=== PATIENT | male | born 1930 | race Caucasian/White ===

== ENCOUNTER → 2017-01-30 | Outpatient (CLI) | payer OTHER, BC ==
[~2017-01-30] MED LIST: ATENOLOL50 MG PO; ATORVASTATIN CA20 MG PO; CELEBREX200 MG PO; COUMADIN PO; Coumadin dosing per PO; FEOSOL325 MG PO; Klonopin PO; LASIX20 MG PO; LO-DOSE ASPIRIN81 M2 PO; METAMUCIL APP1 WAFER PO; MIRALAX, GLYCOL1 PK1 PO; MIRALAX17 GM PO; SAW PALMETTO450 MG PO; SENOKOT S,PE1 TABLET PO; THERAGRAN1 TABLET PO; TRAZODONE HCL50 MG PO; Tenormin PO; VITAMIN D31000 UNIT PO; Vicodin,Lortab 5/500 PO; Zocor PO
== END | disposition home or self-care (01) ==
LOC: EDSTATUS 09:00 → OPR 09:00 → RAD 09:51 → OPR 10:00 → RAD 10:00
PROC: 0J9L3ZX Drainage of Right Upper Leg Subcutaneous Tissue and Fascia, Percutaneous Approach, Diagnostic (ICD-10-PCS; principal; 2017-01-30)
DX: R22.41 Localized swelling, mass and lump, right lower limb (principal)
CPT/HCPCS: 76942; 87070; 87075; 87205; 88160; 88305

== ENCOUNTER → 2017-03-25 | Outpatient (CLI) | payer OTHER, BC | END | disposition home or self-care (01) | LOC: NUC 08:59 | DX: M41.85 Other forms of scoliosis, thoracolumbar region (principal); R93.7 Abnormal findings on diagnostic imaging of other parts of musculoskeletal system; Z96.641 Presence of right artificial hip joint | CPT/HCPCS: 78315; A9503 ==

== ENCOUNTER 2017-10-20 00:45 | Inpatient (IN) | payer OTHER, BC ==
[~2017-10-20] VITALS: Ht 170.2 cm; Wt 70.5 kg
[2017-10-20 01:02] LABS: BASOPHIL (%) 0.7 % (0-1); BASOPHIL COUNT 0.1 K/uL (0-0.1); EOSINOPHIL (%) 0.4 % (0-5); HEMOGLOBIN 10.3 G/DL (12.5-16.6); IMMATURE GRANULOCYTE (%) 1.5 % (0.0-0.7); LYMPHOCYTE (%) 9.2 % (15-42); LYMPHOCYTE COUNT 0.8 K/uL (1.0-2.8); MCH 31.1 PG (29.0-34.0); MCHC 33.2 G/DL (30.0-36.0); MCV 93.7 FL (86-99); MONOCYTE (%) 11.5 % (3-12); MONOCYTE COUNT 1.1 K/uL (0-0.8); NEUTROPHIL (%) 76.7 % (45-76); PLATELET COUNT 407 K/uL (156-360); RBC DIS.WIDTH-CV 15.9 % (11.8-14.6); RBC DIS.WIDTH-SD 54.6 % (39-53); RED BLOOD COUNT 3.31 M/uL (4.00-5.50); WHITE BLOOD COUNT 9.2 K/uL (4.1-10.2)
[2017-10-20 01:12] LABS: CHLORIDE 100 mEq/L (99-109); POTASSIUM 4.2 mEq/L (3.7-5.4); SODIUM 134 mEq/L (136-147)
[2017-10-20 01:14] LABS: GLUCOSE 120 mg/dL (70-99)
[2017-10-20 01:18] LABS: CREATININE 1.4 mg/dL (0.6-1.3); GFR ESTIMATE (CALCULATED) 51 mL/min/ (58.99-99999)
[2017-10-20 01:19] LABS: UREA NITROGEN (BUN) 26 mg/dL (9-23)
[2017-10-20 01:23] LABS: TROP-I INTERPRETATION NEGATIVE; TROPONIN-I 0.08 ng/mL (0.0-0.30)
[2017-10-20 06:52] LABS: TROP-I INTERPRETATION NEGATIVE; TROPONIN-I 0.12 ng/mL (0.0-0.30)
[2017-10-20] MEDS ORDERED: COLACE100 MG PO (08:51)
[2017-10-20] MEDS ORDERED: CLEOCIN300 MG PO (08:51)
[2017-10-20 12:34] LABS: TROP-I INTERPRETATION NEGATIVE; TROPONIN-I 0.18 ng/mL (0.0-0.30)
[2017-10-20 12:55] LABS: APPEARANCE CLEAR ((CLEAR)); BILIRUBIN NEGATIVE; BLOOD SMALL; COLOR STRAW ((YELLOW)); GLUCOSE (STRIP) NEGATIVE; KETONES NEGATIVE; LEUKOCYTES NEGATIVE; NITRITE NEGATIVE; PROTEIN (STRIP) NEGATIVE; SPECIFIC GRAVITY 1.009 (1.000-1.030); UROBILINOGEN 0.2 MG/DL (0.2-1.0)
[2017-10-20 12:58] LABS: BACTERIA RARE /HPF; EPITHELIAL CELLS NONE SEEN /HPF; HYALINE CASTS 0-5 /LPF; MUCUS TRACE /LPF; RED BLOOD CELLS 0-5 /HPF (0-5); UCUL ADDED? NO; WHITE BLOOD CELLS 0-5 /HPF (0-5)
[2017-10-20 15:35] LABS: BASE EXCESS 3.9 mEq/L (-3 to +3); BICARBONATE 27.4 mEq/L (22-26); CARBOXY HGB 1.9 % (0-5); COMMENTS - BLOOD GASES A+C+; DEVICE VM; FI02 50 %; O2 FLOW 12 L/MIN; PCO2 36 mm Hg (35-45); PO2 53 mm Hg (80-100); SITE RR; TOTAL RESP RATE 22 resp/min; pH 7.49 (7.35-7.45)
[2017-10-20 20:16] VITALS: BP 92/55
[2017-10-21 00:12] VITALS: BP 93/52
[2017-10-21 04:34] VITALS: BP 93/52
[2017-10-21 05:50] LABS: HEMATOCRIT 27.2 % (38.0-50.0); HEMOGLOBIN 8.9 G/DL (12.5-16.6); MCH 30.4 PG (29.0-34.0); MCHC 32.7 G/DL (30.0-36.0); MCV 92.8 FL (86-99); PLATELET COUNT 315 K/uL (156-360); RBC DIS.WIDTH-CV 15.9 % (11.8-14.6); RBC DIS.WIDTH-SD 54.6 % (39-53); RED BLOOD COUNT 2.93 M/uL (4.00-5.50)
[2017-10-21 06:21] LABS: CHLORIDE 99 MEQ/L (99-109); GFR ESTIMATE (CALCULATED) > 59 mL/min/ (58.99-99999); GLUCOSE 94 mg/dL (70-99); SODIUM 135 MEQ/L (136-147); UREA NITROGEN (BUN) 20 mg/dL (9-23)
[2017-10-21 06:36] LABS: POTASSIUM 3.1 MEQ/L (3.7-5.4)
[2017-10-21 08:40] VITALS: BP 95/50
[2017-10-21 12:01] VITALS: BP 93/51
[2017-10-21 15:20] VITALS: BP 113/57
[2017-10-21 21:00] VITALS: BP 106/59
[2017-10-22 00:44] VITALS: BP 110/62
[2017-10-22 05:51] VITALS: BP 108/54
[2017-10-22 06:24] LABS: BASOPHIL (%) 0.6 % (0-1); EOSINOPHIL (%) 0.3 % (0-5); HEMATOCRIT 30.4 % (38.0-50.0); HEMOGLOBIN 9.7 G/DL (12.5-16.6); IMMATURE GRANULOCYTE (%) 1.3 % (0.0-0.7); LYMPHOCYTE (%) 15.9 % (15-42); LYMPHOCYTE COUNT 1.1 K/uL (1.0-2.8); MCH 29.9 PG (29.0-34.0); MCHC 31.9 G/DL (30.0-36.0); MCV 93.8 FL (86-99); MONOCYTE (%) 12.4 % (3-12); MONOCYTE COUNT 0.8 K/uL (0-0.8); NEUTROPHIL (%) 69.5 % (45-76); NEUTROPHIL COUNT 4.6 K/uL (1.8-6.4); PLATELET COUNT 321 K/uL (156-360); RBC DIS.WIDTH-CV 15.9 % (11.8-14.6); RBC DIS.WIDTH-SD 54.7 % (39-53); RED BLOOD COUNT 3.24 M/uL (4.00-5.50); WHITE BLOOD COUNT 6.7 K/uL (4.1-10.2)
[2017-10-22 06:30] LABS: CHLORIDE 99 MEQ/L (99-109); GFR ESTIMATE (CALCULATED) > 59 mL/min/ (58.99-99999); GLUCOSE 88 mg/dL (70-99); SODIUM 134 MEQ/L (136-147); UREA NITROGEN (BUN) 24 mg/dL (9-23)
[2017-10-22 06:39] LABS: POTASSIUM 3.9 MEQ/L (3.7-5.4)
[2017-10-22 08:57] VITALS: BP 110/55
[2017-10-22 11:37] VITALS: BP 102/53
[2017-10-22 16:39] VITALS: BP 113/56
[2017-10-22 19:45] VITALS: BP 100/54
[2017-10-23] VITALS (7 sets, daily range): BP systolic 98–117; BP diastolic 56–60
[2017-10-23 05:40] LABS: BASOPHIL (%) 0.4 % (0-1); EOSINOPHIL (%) 2.1 % (0-5); EOSINOPHIL COUNT 0.1 K/uL (0-0.3); HEMOGLOBIN 9.4 G/DL (12.5-16.6); IMMATURE GRANULOCYTE (%) 1.2 % (0.0-0.7); LYMPHOCYTE (%) 19.4 % (15-42); LYMPHOCYTE COUNT 1.1 K/uL (1.0-2.8); MCH 30.1 PG (29.0-34.0); MCHC 32.4 G/DL (30.0-36.0); MCV 92.9 FL (86-99); MONOCYTE (%) 13.8 % (3-12); MONOCYTE COUNT 0.8 K/uL (0-0.8); NEUTROPHIL (%) 63.1 % (45-76); NEUTROPHIL COUNT 3.6 K/uL (1.8-6.4); PLATELET COUNT 306 K/uL (156-360); RBC DIS.WIDTH-CV 15.9 % (11.8-14.6); RBC DIS.WIDTH-SD 53.7 % (39-53); RED BLOOD COUNT 3.12 M/uL (4.00-5.50); WHITE BLOOD COUNT 5.7 K/uL (4.1-10.2)
[2017-10-23 06:07] LABS: CHLORIDE 100 MEQ/L (99-109); CREATININE 0.9 MG/DL (0.6-1.3); GFR ESTIMATE (CALCULATED) > 59 mL/min/ (58.99-99999); GLUCOSE 92 mg/dL (70-99); POTASSIUM 3.7 MEQ/L (3.7-5.4); SODIUM 133 MEQ/L (136-147); UREA NITROGEN (BUN) 23 mg/dL (9-23)
[2017-10-24 04:00] VITALS: BP 101/60
[2017-10-24 05:45] LABS: HEMATOCRIT 28.4 % (38.0-50.0); HEMOGLOBIN 9.1 G/DL (12.5-16.6); MCH 29.7 PG (29.0-34.0); MCV 92.8 FL (86-99); PLATELET COUNT 316 K/uL (156-360); RBC DIS.WIDTH-CV 15.9 % (11.8-14.6); RBC DIS.WIDTH-SD 53.6 % (39-53); RED BLOOD COUNT 3.06 M/uL (4.00-5.50); WHITE BLOOD COUNT 5.6 K/uL (4.1-10.2)
[2017-10-24 08:34] VITALS: BP 104/48
[2017-10-24 11:17] VITALS: BP 104/48
[2017-10-24 15:14] VITALS: BP 120/60
[2017-10-24 20:10] VITALS: BP 95/56
[2017-10-24 23:55] VITALS: BP 117/60
[2017-10-25 03:30] VITALS: BP 119/58
[2017-10-25 11:35] VITALS: BP 99/56
[2017-10-25 15:58] VITALS: BP 127/56
[2017-10-25 20:00] VITALS: BP 105/59
[2017-10-25 23:54] VITALS: BP 105/57
[2017-10-26 04:00] VITALS: BP 115/57
[2017-10-26 05:23] LABS: BASOPHIL COUNT 0.1 K/uL (0-0.1); EOSINOPHIL (%) 3.4 % (0-5); EOSINOPHIL COUNT 0.2 K/uL (0-0.3); HEMATOCRIT 30.3 % (38.0-50.0); HEMOGLOBIN 9.9 G/DL (12.5-16.6); IMMATURE GRANULOCYTE (%) 4.8 % (0.0-0.7); LYMPHOCYTE (%) 27.2 % (15-42); LYMPHOCYTE COUNT 1.9 K/uL (1.0-2.8); MCH 30.2 PG (29.0-34.0); MCHC 32.7 G/DL (30.0-36.0); MCV 92.4 FL (86-99); MONOCYTE (%) 13.2 % (3-12); MONOCYTE COUNT 0.9 K/uL (0-0.8); NEUTROPHIL (%) 50.4 % (45-76); NEUTROPHIL COUNT 3.6 K/uL (1.8-6.4); PLATELET COUNT 385 K/uL (156-360); RBC DIS.WIDTH-CV 15.8 % (11.8-14.6); RBC DIS.WIDTH-SD 53.9 % (39-53); RED BLOOD COUNT 3.28 M/uL (4.00-5.50); WHITE BLOOD COUNT 7.1 K/uL (4.1-10.2)
[2017-10-26 06:02] LABS: CHLORIDE 102 MEQ/L (99-109); CREATININE 0.8 MG/DL (0.6-1.3); GFR ESTIMATE (CALCULATED) > 59 mL/min/ (58.99-99999); GLUCOSE 88 mg/dL (70-99); SODIUM 134 MEQ/L (136-147); UREA NITROGEN (BUN) 19 mg/dL (9-23)
[2017-10-26 06:03] LABS: POTASSIUM 4.8 MEQ/L (3.7-5.4)
[2017-10-26 06:59] VITALS: BP 98/53
[2017-10-26] MEDS ORDERED: LISINOPRIL2.5 MG PO (12:04)
[2017-10-26] MEDS ORDERED: KLOR-CON M1010 MEQ PO (12:06)
[2017-10-26] MEDS ORDERED: FUROSEMIDE20 MG PO (12:07)
== END 2017-10-26 14:23 | disposition home health service (06) | DRG 291 ==
LOC: EME 00:45 → EDOF 05:15 → 4EAST 05:15 → ENRESERV 05:19 → 4EAST 19:53
PROVIDERS: Emergency Medicine; Hospitalist; Internal Medicine
PROC: 5A09357 Assistance with Respiratory Ventilation, Less than 24 Consecutive Hours, Continuous Positive Airway Pressure (ICD-10-PCS; principal; 2017-10-20)
DX: I11.0 Hypertensive heart disease with heart failure (principal); J96.01 Acute respiratory failure with hypoxia; J10.00 Influenza due to other identified influenza virus with unspecified type of pneumonia; I50.43 Acute on chronic combined systolic (congestive) and diastolic (congestive) heart failure; I25.2 Old myocardial infarction; I42.9 Cardiomyopathy, unspecified; I35.0 Nonrheumatic aortic (valve) stenosis; Z90.81 Acquired absence of spleen; Z85.048 Personal history of other malignant neoplasm of rectum, rectosigmoid junction, and anus; I25.10 Atherosclerotic heart disease of native coronary artery without angina pectoris; I44.7 Left bundle-branch block, unspecified; E87.1 Hypo-osmolality and hyponatremia; E78.5 Hyperlipidemia, unspecified; K27.9 Peptic ulcer, site unspecified, unspecified as acute or chronic, without hemorrhage or perforation; L03.115 Cellulitis of right lower limb; D64.9 Anemia, unspecified; Z87.891 Personal history of nicotine dependence; Z66 Do not resuscitate; Z95.5 Presence of coronary angioplasty implant and graft; Z96.641 Presence of right artificial hip joint
CPT/HCPCS: 36600; 71045; 71046; 71275; 80048; 81003; 82803; 83880; 84484; 85025; 85027; 87040; 87449; 87502; 93005; 93306; 93970; 94002; 94799; 99281; 99285; J0456; J0692; J1644; J1940

== ENCOUNTER 2017-11-13 07:41 | Day surgery (SDC) | payer OTHER, BC ==
[~2017-11-13] VITALS: Ht 170.2 cm; Wt 70.0 kg
[~2017-11-13 07:41] MED LIST changes: +ATENOLOL25 MG PO; -ATENOLOL50 MG PO; +CLEOCIN300 MG PO; +COLACE100 MG PO; +FUROSEMIDE20 MG PO; +KLOR-CON M1010 MEQ PO; +LISINOPRIL2.5 MG PO
[2017-11-13 16:00] VITALS: BP 122/57
[2017-11-13 19:00] VITALS: BP 106/52
[2017-11-13 23:28] VITALS: BP 117/57
[2017-11-14 02:52] VITALS: BP 106/54
[2017-11-14 05:50] LABS: BASOPHIL (%) 0.7 % (0-1); BASOPHIL COUNT 0.1 K/uL (0-0.1); EOSINOPHIL (%) 4.6 % (0-5); EOSINOPHIL COUNT 0.3 K/uL (0-0.3); HEMATOCRIT 28.7 % (38.0-50.0); HEMOGLOBIN 9.3 G/DL (12.5-16.6); IMMATURE GRANULOCYTE (%) 0.4 % (0.0-0.7); LYMPHOCYTE (%) 24.1 % (15-42); LYMPHOCYTE COUNT 1.6 K/uL (1.0-2.8); MCH 29.9 PG (29.0-34.0); MCHC 32.4 G/DL (30.0-36.0); MCV 92.3 FL (86-99); MONOCYTE (%) 16.2 % (3-12); MONOCYTE COUNT 1.1 K/uL (0-0.8); NEUTROPHIL COUNT 3.6 K/uL (1.8-6.4); PLATELET COUNT 327 K/uL (156-360); RBC DIS.WIDTH-CV 16.6 % (11.8-14.6); RBC DIS.WIDTH-SD 55.8 % (39-53); RED BLOOD COUNT 3.11 M/uL (4.00-5.50); WHITE BLOOD COUNT 6.7 K/uL (4.1-10.2)
[2017-11-14 06:08] LABS: CHLORIDE 105 MEQ/L (99-109); CREATININE 1.1 MG/DL (0.6-1.3); GFR ESTIMATE (CALCULATED) > 59 mL/min/ (58.99-99999); GLUCOSE 79 mg/dL (70-99); POTASSIUM 4.3 MEQ/L (3.7-5.4); SODIUM 139 MEQ/L (136-147); UREA NITROGEN (BUN) 20 mg/dL (9-23)
[2017-11-14 07:13] VITALS: BP 115/57
[2017-11-14 11:20] VITALS: BP 107/55
[2017-11-14] MEDS ORDERED: CLOPIDOGREL75 MG PO (11:45)
[2017-11-14] MEDS ORDERED: NITROSTAT0.4 MG SL (11:45)
== END 2017-11-14 14:15 | disposition home or self-care (01) ==
LOC: CATH 07:41 → 2SOUTH 11:30 → 4EAST 11:30 → ENRESERV 11:56 → 4EAST 15:40
PROVIDERS: Internal Medicine Interventional Cardiology
DX: I35.0 Nonrheumatic aortic (valve) stenosis (principal); I42.9 Cardiomyopathy, unspecified; I25.10 Atherosclerotic heart disease of native coronary artery without angina pectoris; I11.0 Hypertensive heart disease with heart failure; I50.22 Chronic systolic (congestive) heart failure; E78.2 Mixed hyperlipidemia; D64.9 Anemia, unspecified; Z88.0 Allergy status to penicillin; Z79.82 Long term (current) use of aspirin; Z79.02 Long term (current) use of antithrombotics/antiplatelets; I25.2 Old myocardial infarction; Z85.048 Personal history of other malignant neoplasm of rectum, rectosigmoid junction, and anus; Z92.21 Personal history of antineoplastic chemotherapy; Z92.3 Personal history of irradiation; Z86.12 Personal history of poliomyelitis; Z82.49 Family history of ischemic heart disease and other diseases of the circulatory system; Z87.891 Personal history of nicotine dependence
CPT/HCPCS: 80048; 85025; 85347; C1725; C1769; C1876; C1887; G0378; J1644; J2250; J3010

== ENCOUNTER 2017-12-16 07:42 | Observation (INO) | payer OTHER, BC ==
[~2017-12-16] VITALS: Ht 170.2 cm; Wt 74.0 kg
[~2017-12-16 07:42] MED LIST changes: +CLOPIDOGREL75 MG PO; +NITROSTAT0.4 MG SL
[2017-12-16 08:26] LABS: BASOPHIL (%) 0.8 % (0-1); EOSINOPHIL (%) 3.6 % (0-5); EOSINOPHIL COUNT 0.2 K/uL (0-0.3); HEMATOCRIT 27.8 % (38.0-50.0); HEMOGLOBIN 9.5 G/DL (12.5-16.6); IMMATURE GRANULOCYTE (%) 0.8 % (0.0-0.7); LYMPHOCYTE (%) 21.7 % (15-42); LYMPHOCYTE COUNT 1.1 K/uL (1.0-2.8); MCH 31.3 PG (29.0-34.0); MCHC 34.2 G/DL (30.0-36.0); MCV 91.4 FL (86-99); MONOCYTE COUNT 0.8 K/uL (0-0.8); NEUTROPHIL (%) 57.1 % (45-76); PLATELET COUNT 305 K/uL (156-360); RBC DIS.WIDTH-CV 17.2 % (11.8-14.6); RBC DIS.WIDTH-SD 58.1 % (39-53); RED BLOOD COUNT 3.04 M/uL (4.00-5.50); WHITE BLOOD COUNT 5.3 K/uL (4.1-10.2)
[2017-12-16 08:34] LABS: PTT 27.3 SEC (25-37)
[2017-12-16 08:35] LABS: CHLORIDE 103 mEq/L (99-109); POTASSIUM 4.1 mEq/L (3.7-5.4); SODIUM 138 mEq/L (136-147)
[2017-12-16 08:37] LABS: GLUCOSE 91 mg/dL (70-99)
[2017-12-16 08:41] LABS: CREATININE 1.2 mg/dL (0.6-1.3); GFR ESTIMATE (CALCULATED) > 59 mL/min/ (58.99-99999)
[2017-12-16 08:42] LABS: UREA NITROGEN (BUN) 21 mg/dL (9-23)
[2017-12-16 08:47] LABS: TROP-I INTERPRETATION NEGATIVE; TROPONIN-I < 0.01 ng/mL (0.0-0.30)
[2017-12-16] MEDS ORDERED: K-DUR10 MEQ PO (10:38)
[2017-12-16] MEDS ORDERED: K-DUR20 MEQ PO (10:39)
[2017-12-16] MEDS ORDERED: PROTONIX40 MG PO (10:39)
[2017-12-16 15:35] LABS: TROP-I INTERPRETATION NEGATIVE; TROPONIN-I < 0.01 ng/mL (0.0-0.30)
[2017-12-16 17:24] VITALS: BP 141/65
[2017-12-16 21:26] LABS: TROP-I INTERPRETATION NEGATIVE; TROPONIN-I 0.01 ng/mL (0.0-0.30)
[2017-12-16 21:30] VITALS: BP 111/55
[2017-12-17 00:09] VITALS: BP 116/58
[2017-12-17 04:30] VITALS: BP 104/58
[2017-12-17 09:46] VITALS: BP 97/52
[2017-12-17 11:01] VITALS: BP 114/70
== END 2017-12-17 13:44 | disposition home or self-care (01) ==
LOC: EME 07:42 → EDOF 09:36 → 5WEST 09:36 → EDOF 09:36 → ENRESERV 09:42 → EDOF 09:45 → ENRESERV 14:59 → 5WEST 16:54
PROVIDERS: Emergency Medicine; Internal Medicine
DX: R07.9 Chest pain, unspecified (principal); I25.10 Atherosclerotic heart disease of native coronary artery without angina pectoris; I42.0 Dilated cardiomyopathy; I35.0 Nonrheumatic aortic (valve) stenosis; I11.0 Hypertensive heart disease with heart failure; I50.22 Chronic systolic (congestive) heart failure; D64.9 Anemia, unspecified; K27.9 Peptic ulcer, site unspecified, unspecified as acute or chronic, without hemorrhage or perforation; I47.1 Supraventricular tachycardia; I44.7 Left bundle-branch block, unspecified; E78.5 Hyperlipidemia, unspecified; I25.2 Old myocardial infarction; Z85.048 Personal history of other malignant neoplasm of rectum, rectosigmoid junction, and anus; Z95.5 Presence of coronary angioplasty implant and graft; Z96.641 Presence of right artificial hip joint; Z90.81 Acquired absence of spleen; Z90.49 Acquired absence of other specified parts of digestive tract; Z66 Do not resuscitate; Z82.49 Family history of ischemic heart disease and other diseases of the circulatory system; Z80.1 Family history of malignant neoplasm of trachea, bronchus and lung; Z79.82 Long term (current) use of aspirin; Z79.02 Long term (current) use of antithrombotics/antiplatelets; Z87.891 Personal history of nicotine dependence
CPT/HCPCS: 71045; 80048; 84484; 85025; 85610; 85730; 93005; 99281; 99285; G0378; J1650